=== PATIENT | male | born 1985 | race Caucasian/White ===

== ENCOUNTER 2018-02-21 22:46 | Emergency (ER) | payer OTHER ==
[~2018-02-21] VITALS: Ht 172.7 cm; Wt 72.6 kg
[2018-02-21] MEDS ORDERED: ACULAR5 ML RIGHTEYE (23:59)
[2018-02-21] MEDS ORDERED: ERYT1OIN BOTHEYES (23:59)
== END 2018-02-22 00:05 | disposition home or self-care (01) ==
LOC: ER 22:46
DX: S05.01XA Injury of conjunctiva and corneal abrasion without foreign body, right eye, initial encounter (principal); X58.XXXA Exposure to other specified factors, initial encounter
CPT/HCPCS: 99283